=== PATIENT | female | born 2000 | race African-American/Black ===

== ENCOUNTER 2021-11-07 16:38 | Emergency (ER) | payer MEDICAID ==
[2021-11-07] MEDS ORDERED: Ondansetron ODT 4 MG TAB ONE (17:53)
[2021-11-07 17:57] LABS: Bilirubin Neg (Negative); Blood, Urine 10 (Negative); Clarity Clear (Clear); Glucose, Urine (Dipstick) Normal (Negative); Ketone, Urine Negative (Negative); Leukocyte 25 (Negative); Nitrite Negative (Negative); Protein, Urine (Dipstick) Negative (Neg-Trace)
[2021-11-07 17:58] LABS: Pregnancy Test - Urine (BHCG) Negative (Negative); Pregu Control Background? CLEAR/WHITE (CLR/WHITE); Pregu Control Bar Appear? YES (CONTROL BAR)
[2021-11-07 18:09] LABS: Bacteria/HPF 2+ HPF (None Seen); Mucous/LPF Rare LPF (<2+); RBC/HPF 0-3 HPF (0-3); WBC/HPF 0-3 HPF (0-3)
== END 2021-11-07 18:51 | disposition home or self-care (01) ==
LOC: CSHERS 16:38
DX: R11.2 Nausea with vomiting, unspecified (principal); R53.83 Other fatigue
CPT/HCPCS: 81003; 81015; 81025; 99284; Q0162